=== PATIENT | female | born 1935 | race Caucasian/White ===

== ENCOUNTER → 2017-02-26 | Outpatient (CLI) | payer MEDICARE, BC ==
[~2017-02-26] MED LIST: ACTOS30 MG PO; ARICEPT ODT5 MG PO; ASPIR-LOW81 MG PO; ASPIRIN E.C. 8181 MG PO; CALCIUM + D 5001 TAB PO; CARAFATE 1GM1 G PO; CENTRUM SILVER1 TA1 PO; COZAAR50 MG PO; DIOVAN160 MG PO; FERROUS SULFAT325 MG PO; FIBER0.52 GM PO; FISH OIL CONC1000 MG PO; FOSAMAX 70MG TA70 MG PO; IRON50 MG PO; JANUVIA50 MG PO; LEVEMIR SQ; LEVEMIR100 U/ML SQ; LEVOXYL0.05 MG PO; LIPITOR 10MG10 MG PO; METFORMIN ER500 MG PO; METFORMIN500 MG PO; NITROQUICK0.4 MG SL; NITROSTAT0.4 MG SL; PANTOPRAZOLE40 MG PO; PRILOSEC 20MG20 MG PO; PROTONIX PO; RESTASIS0.05% OP; SERTRALINE50 MG PO; TOPROL XL25 MG PO; ULTRAM 50MG TAB50 MG PO; ZETIA10 MG PO; ZOLOFT50 MG PO
== END ==
LOC: SUN.DIA 12:28
DX: E11.9 Type 2 diabetes mellitus without complications (principal); Z68.25 Body mass index [BMI] 25.0-25.9, adult; Z71.3 Dietary counseling and surveillance; E78.5 Hyperlipidemia, unspecified; I10 Essential (primary) hypertension; I51.9 Heart disease, unspecified

== ENCOUNTER → 2017-05-16 | Outpatient (CLI) | payer MEDICARE, BC | LOC: MC.RAD 13:20 | DX: Z12.31 Encounter for screening mammogram for malignant neoplasm of breast (principal) ==

== ENCOUNTER → 2018-02-25 | Outpatient (CLI) | payer MEDICARE, BC | LOC: SUN.DIA 12:55 | DX: E11.9 Type 2 diabetes mellitus without complications (principal); Z79.4 Long term (current) use of insulin; I11.9 Hypertensive heart disease without heart failure; E78.5 Hyperlipidemia, unspecified; Z68.27 Body mass index [BMI] 27.0-27.9, adult; Z71.3 Dietary counseling and surveillance; Z87.891 Personal history of nicotine dependence | CPT/HCPCS: G0108 ==

== ENCOUNTER → 2018-05-22 | Outpatient (CLI) | payer MEDICARE, BC | LOC: MC.RAD 13:29 | DX: Z12.31 Encounter for screening mammogram for malignant neoplasm of breast (principal) ==

== ENCOUNTER → 2018-09-01 | Outpatient (CLI) | payer MEDICARE, BC | LOC: SUN.DIA 12:55 | DX: E11.9 Type 2 diabetes mellitus without complications (principal); Z79.4 Long term (current) use of insulin; E78.5 Hyperlipidemia, unspecified; I10 Essential (primary) hypertension | CPT/HCPCS: G0108 ==

== ENCOUNTER → 2018-10-08 | Outpatient (CLI) | payer MEDICARE, BC | LOC: MHCPAIN 08:09 | DX: G89.29 Other chronic pain (principal); M47.817 Spondylosis without myelopathy or radiculopathy, lumbosacral region; M54.16 Radiculopathy, lumbar region; M53.3 Sacrococcygeal disorders, not elsewhere classified; M48.061 Spinal stenosis, lumbar region without neurogenic claudication | CPT/HCPCS: G0463 ==

== ENCOUNTER → 2018-10-23 | Outpatient (CLI) | payer MEDICARE, BC | LOC: MHCPAIN 10:38 | DX: M47.817 Spondylosis without myelopathy or radiculopathy, lumbosacral region (principal); M54.16 Radiculopathy, lumbar region | CPT/HCPCS: J1040; Q9967 ==

== ENCOUNTER → 2018-11-26 | Outpatient (CLI) | payer MEDICARE, BC | LOC: MHCPAIN 12:58 | DX: G89.29 Other chronic pain (principal); M47.817 Spondylosis without myelopathy or radiculopathy, lumbosacral region; M54.16 Radiculopathy, lumbar region; M53.3 Sacrococcygeal disorders, not elsewhere classified; M48.061 Spinal stenosis, lumbar region without neurogenic claudication | CPT/HCPCS: G0463 ==

== ENCOUNTER → 2019-02-16 | Outpatient (CLI) | payer MEDICARE, BC | LOC: MHCPAIN 10:49 | DX: G89.29 Other chronic pain (principal); M47.817 Spondylosis without myelopathy or radiculopathy, lumbosacral region; M54.16 Radiculopathy, lumbar region; M53.3 Sacrococcygeal disorders, not elsewhere classified; M48.061 Spinal stenosis, lumbar region without neurogenic claudication | CPT/HCPCS: G0463 ==

== ENCOUNTER → 2019-02-19 | Outpatient (CLI) | payer MEDICARE, BC | LOC: MHCPAIN 13:01 | DX: M47.817 Spondylosis without myelopathy or radiculopathy, lumbosacral region (principal); M54.16 Radiculopathy, lumbar region | CPT/HCPCS: J1100; Q9967 ==

== ENCOUNTER → 2019-03-02 | Outpatient (CLI) | payer MEDICARE, BC | LOC: SUN.DIA 12:41 | DX: E11.9 Type 2 diabetes mellitus without complications (principal); E78.5 Hyperlipidemia, unspecified; I10 Essential (primary) hypertension; Z79.4 Long term (current) use of insulin | CPT/HCPCS: G0108 ==

== ENCOUNTER 2019-05-06 07:22 | Outpatient (CLI) | payer MEDICARE, BC ==
[2005-12-20 00:53] VITALS: BP 127/66
[~2019-05-06] VITALS: Ht 147.3 cm; Wt 63.6 kg
[2019-05-06 07:50] VITALS: BP 128/67; PULSE 44; TEMP 98
[2019-05-06] MEDS ORDERED: LUTEIN6 MG PO (08:17)
[2019-05-06] MEDS ORDERED: AMITRIPTYLINE H10 M1 PO (08:17)
[2019-05-06] MEDS ORDERED: PROBIOTIC FORMU1 CAP PO (08:17)
[2019-05-06] MEDS ORDERED: LASIX 20MG TABL20 MG PO (08:18)
[2019-05-06] MEDS ORDERED: ZANTAC 300300 MG PO (08:18)
[2019-05-06] MEDS ORDERED: CLEOCIN HCL300 MG PO (09:25)
--- NOTE | 2019-05-06 09:45 | NUR ---
Discharge instructions given. Transferred to private car by vincent
[2019-05-06 09:55] VITALS: BP 124/76; PULSE 72; TEMP 98
== END 2019-05-06 09:59 | disposition home or self-care (01) ==
LOC: COL.CAR 07:22
DX: I25.10 Atherosclerotic heart disease of native coronary artery without angina pectoris (principal); I25.2 Old myocardial infarction; I25.5 Ischemic cardiomyopathy; Z95.5 Presence of coronary angioplasty implant and graft; I44.7 Left bundle-branch block, unspecified; I10 Essential (primary) hypertension; E78.5 Hyperlipidemia, unspecified; R55 Syncope and collapse; R09.89 Other specified symptoms and signs involving the circulatory and respiratory systems; E11.9 Type 2 diabetes mellitus without complications; F03.90 Unspecified dementia, unspecified severity, without behavioral disturbance, psychotic disturbance, mood disturbance, and anxiety; J30.2 Other seasonal allergic rhinitis; K21.9 Gastro-esophageal reflux disease without esophagitis; Z88.0 Allergy status to penicillin; Z79.82 Long term (current) use of aspirin; Z87.891 Personal history of nicotine dependence; Z82.49 Family history of ischemic heart disease and other diseases of the circulatory system; Z79.4 Long term (current) use of insulin

== ENCOUNTER 2019-06-29 06:50 | Day surgery (SDC) | payer MEDICARE, BC ==
[2005-12-20 00:53] VITALS: BP 127/66
[~2019-06-29] VITALS: Ht 147.3 cm; Wt 64.2 kg
[2019-06-29] VITALS (14 sets, daily range): BP systolic 124–183; BP diastolic 40–85; PULSE 61–75; TEMP 97.8
[~2019-06-29 06:50] MED LIST changes: +AMITRIPTYLINE H10 M1 PO; +CLEOCIN HCL300 MG PO; +LASIX 20MG TABL20 MG PO; +LUTEIN6 MG PO; +PROBIOTIC FORMU1 CAP PO; +ZANTAC 300300 MG PO
[2019-06-29 07:45] LABS: HEMOGLOBIN 11.6 g/dl (12.5-16.0); MEAN CELL VOLUME 91 fl (80.0-100.0); MEAN CORPUSCULAR HEMOGLOBIN 30 pg (27.0-31.0); MEAN CORPUSCULAR HGB CONC 33 g/dl (33.0-37.0); MEAN PLATELET VOLUME 9.1 fl (7.4-10.4); PLATELET COUNT 193 K/mm3 (130-400); RED BLOOD COUNT 3.88 M/mm3 (4.10-5.30); REDCELL DISTRIBUTION WIDTH-CV 14.9 % (11.5-14.5)
[2019-06-29 07:48] LABS: HEMATOCRIT 35.1 % (37.0-47.0)
[2019-06-29 07:54] LABS: INR 1.1 (0.8-3.0); PROTHROMBIN TIME 12.3 SECONDS (9.7-12.8)
[2019-06-29 07:55] LABS: CALCIUM 9.8 mg/dL (8.4-10.2); CREATININE, serum 1.45 (0.52-1.25); POTASSIUM 4.4 mmol/L (3.4-5.0)
[2019-06-29] MEDS ORDERED: ULTRAM 50MG TAB50 MG PO (08:08)
[2019-06-29] MEDS ORDERED: FOSAMAX 70MG TA70 MG PO (08:19)
[2019-06-29] MEDS ORDERED: SYNTHROID0.05 MG/TA PO (08:20)
[2019-06-29] MEDS ORDERED: ZYRTEC 10MG10 MG PO (08:21)
[2019-06-29] MEDS ORDERED: RESTASIS MULTI5.5 ML OP (08:22)
[2019-06-29] MEDS ORDERED: JANUVIA50 MG PO (08:22)
[2019-06-29] MEDS ORDERED: TOPROL XL 25MG25 MG PO ×2 (08:23→10:09)
[2019-06-29] MEDS ORDERED: GLUMETZA500 MG PO (08:24)
[2019-06-29] MEDS ORDERED: ZOLOFT 50MG50 MG PO (08:28)
[2019-06-29] MEDS ORDERED: LASIX 20MG TABL20 MG PO ×2 (08:29→10:11)
[2019-06-29] MEDS ORDERED: CENTRUM SILVER1 CTB PO (08:30)
[2019-06-29] MEDS ORDERED: CALCIUM CARBON650 M2 (08:31)
[2019-06-29] MEDS ORDERED: PROFE180 MG PO (08:31)
[2019-06-29] MEDS ORDERED: PROBIOTIC FORMU1 CAP PO (08:32)
[2019-06-29] MEDS ORDERED: LUTEIN20 M1 PO (08:32)
[2019-06-29] MEDS ORDERED: EPA FISH OIL1 SGL PO (08:33)
[2019-06-29] MEDS ORDERED: ASPIRIN 81M81 MG/TA2 PO (08:33)
[2019-06-29] MEDS ORDERED: LIPITOR 10MG10 MG PO (08:34)
[2019-06-29] MEDS ORDERED: COZAAR 50MG50 MG/TAB PO ×2 (08:35→10:09)
[2019-06-29] MEDS ORDERED: ACTOS30 MG PO (08:35)
[2019-06-29] MEDS ORDERED: ARICEPT10 MG PO (08:36)
[2019-06-29] MEDS ORDERED: AMITRIPTYLINE H10 M1 PO (08:37)
[2019-06-29] MEDS ORDERED: LEVEMIR100 U/ML SQ (08:39)
[2019-06-29] MEDS ORDERED: ZANTAC 300300 MG PO (08:40)
[2019-06-29] MEDS ORDERED: TEMOVATE OINT30 GM TOP (08:41)
[2019-06-29] MEDS ORDERED: ESTRACE0.1 MG/GM VG (08:41)
[2019-06-29] MEDS ORDERED: NITROSTAT0.4 MG/TAB SL (08:42)
[2019-06-29] MEDS ORDERED: FIBER0.52 GM PO (08:43)
[2019-06-29] MEDS ORDERED: QUESTRAN4 GM/9 GM PO (08:43)
--- NOTE | 2019-06-29 09:20 | NUR ---
Pt to procedure,report to Nicole Gaspar.
--- NOTE | 2019-06-29 10:15 | NUR ---
Pt transferred to express unit at this time. During case, right radial access initially attempted but without success. Pressure held during case. Edema bruising noted to right wrist following case completion. Radial pulse remains +2 to palpation. Edematous area noted soft, no hematoma currently palpated. Sight examined by MD prior to transfer to express with no new orders currently received. Armboard applied and bruising extent marked. Bedside report/handoff to POLO Ryan and POLO Oneil. Right radial site remains unchanged from when MD assessed it. Right groin site assessed without bruising or bleeding noted, dressing remains dry/intact, and sight soft to palpation. No s/sx of hematoma noted. Right DP pulse +2. VS's WNL. Education provided to pt and family regarding movement restrictions and flat time. All questions answered at this time.
--- NOTE | 2019-06-29 10:27 | NUR ---
Pt back from biological lab technician. report was received from ROSENDO CUELLAR. Plan to continue monitoriung of rt radial puncture site as well as rt femoral site. Rt radial pulse intact at this time. there is some bruising to rt wrist that is demarcated with a skin marker, the bruising has not expanded past this line at this point. cms is intact.
--- NOTE | 2019-06-29 11:11 | NUR ---
Pt has used bedpan with no problem. turned pt to rt side keeping rt leg straight. pt does complain now of numbness to rt wrist. there was a board placed on rt wrist upon her return to express unit to help her keep from moving rt wrist. this board is removed and bandain to puncture loosened slightly. after repositioning rt wrist in neutral position for several minutes, pt continues to complain of rt thumb numbness, although it does seem to be improving slowly. cms intact otherwise.
--- NOTE | 2019-06-29 14:18 | NUR ---
Pt resting comfortably, satting 97% on room air, at bs. Discharge instructions r/t rt femoral access and rt wrist puncture reviewed with pt and pt's . written instructions provided. and patient verbalize understanding of instructions and needed monitoring.
--- NOTE | 2019-06-29 14:45 | NUR ---
Pt was able to sit at edge of bed, stand, ambulate to toilet that is in the room. Pt then ambulated in the pop with stand by assist. Groin remains soft with no hematoma and no drainage. rt wrist bruising present but unchanges, no hematoma to wrist. rt thumb now normal, no numbness reported. Pt now sitting in chair beside , eating lunch, drank water with no problem. cardiac monitoring still in place. plan to reassess groin and wrist after patient eats. Still waiting to find out whether pt with receive life vest prior to her departure. Clarice Adler RN working on this. Pt and aware of poc.
--- NOTE | 2019-06-29 15:16 | NUR ---
Patient will be fitted for lifevest at home.Arrangements made by Dr torres nursePepper.Ok'd by Dr torres to be fitted at home.Discharge instructions reviewed with pt.Pt verbalized understanding.
== END 2019-06-29 15:30 | disposition home or self-care (01) ==
LOC: COL.CAR 06:50
PROVIDERS: Internal Medicine Cardiovascular Disease
DX: I25.5 Ischemic cardiomyopathy (principal); I25.10 Atherosclerotic heart disease of native coronary artery without angina pectoris; I10 Essential (primary) hypertension; I44.7 Left bundle-branch block, unspecified; E78.5 Hyperlipidemia, unspecified; I25.2 Old myocardial infarction; E11.9 Type 2 diabetes mellitus without complications; Z79.4 Long term (current) use of insulin; K21.9 Gastro-esophageal reflux disease without esophagitis; Z95.5 Presence of coronary angioplasty implant and graft; I34.0 Nonrheumatic mitral (valve) insufficiency; Z88.0 Allergy status to penicillin; Z79.82 Long term (current) use of aspirin; Z79.899 Other long term (current) drug therapy; Z87.891 Personal history of nicotine dependence; Z82.49 Family history of ischemic heart disease and other diseases of the circulatory system; Z95.818 Presence of other cardiac implants and grafts
CPT/HCPCS: J1644; J2250; J3010; Q9967

== ENCOUNTER 2019-07-19 10:32 | Emergency (ER) | payer MEDICARE, BC ==
[2005-12-20 00:53] VITALS: BP 127/66
[~2019-07-19] VITALS: Ht 147.3 cm; Wt 64.3 kg
[~2019-07-19 10:32] MED LIST changes: +ARICEPT10 MG PO; +ASPIRIN 81M81 MG/TA2 PO; +CALCIUM CARBON650 M2; +CENTRUM SILVER1 CTB PO; +COZAAR 50MG50 MG/TAB PO; +EPA FISH OIL1 SGL PO; +ESTRACE0.1 MG/GM VG; +GLUMETZA500 MG PO; +LUTEIN20 M1 PO; +NITROSTAT0.4 MG/TAB SL; +PROFE180 MG PO; +QUESTRAN4 GM/9 GM PO; +RESTASIS MULTI5.5 ML OP; +SYNTHROID0.05 MG/TA PO; +TEMOVATE OINT30 GM TOP; +TOPROL XL 25MG25 MG PO; +ZOLOFT 50MG50 MG PO; +ZYRTEC 10MG10 MG PO
[2019-07-19 10:42] VITALS: TEMP 98.4
[2019-07-19 11:18] LABS: BASO % 0.6 % (0.0-2.0); EOS # 0.2 (0.0-0.7); GRAN # 2.9 (1.4-6.5); GRAN % 59.1 % (42.2-75.2); HEMOGLOBIN 11.6 g/dl (12.5-16.0); LYMPH # 1.4 (1.2-3.4); LYMPH % 27.4 % (20.0-51.0); MEAN CELL VOLUME 92 fl (80.0-100.0); MEAN CORPUSCULAR HEMOGLOBIN 30 pg (27.0-31.0); MEAN CORPUSCULAR HGB CONC 32 g/dl (33.0-37.0); MEAN PLATELET VOLUME 9.2 fl (7.4-10.4); MONO # 0.5 (0.1-0.6); MONO % 9.7 % (1.7-9.3); PLATELET COUNT 192 K/mm3 (130-400); RED BLOOD COUNT 3.92 M/mm3 (4.10-5.30); REDCELL DISTRIBUTION WIDTH-CV 15.1 % (11.5-14.5)
[2019-07-19 11:19] LABS: PROTHROMBIN TIME 12.1 SECONDS (9.7-12.8)
[2019-07-19 11:26] LABS: ALANINE AMINOTRANSFERASE 22 U/L (9-52); ALBUMIN 4.2 gm/dL (3.5-5.0); ALKALINE PHOSPHATASE 64 U/L (50-136); ANION GAP 9 mmol/L (7-16); AST,SGOT 27 U/L (15-37); BILIRUBIN,TOTAL 0.3 mg/dL (0.0-1.0); BLOOD UREA NITROGEN 27 mg/dL (7-17); CALCIUM 9.8 mg/dL (8.4-10.2); CARBON DIOXIDE 31 mmol/L (22-30); CHLORIDE 98 mmol/L (98-107); CREATININE, serum 1.29 (0.52-1.25); GLUCOSE 117 mg/dL (74-106); SODIUM 138 mmol/L (137-145); TOTAL PROTEIN 7.4 gm/dL (6.4-8.2)
[2019-07-19 11:39] LABS: TROPONIN-I < 0.012 ng/mL (0.000-0.035)
[2019-07-19 14:50] LABS: COLLECTION METHOD CLEAN CATCH
[2019-07-19 15:03] LABS: PH 8 (5-8); SQUAMOUS EPITHELIAL None Seen /hpf; URINE APPEARANCE Clear; URINE BACTERIA None Seen /hpf; URINE BILIRUBIN Negative (NEGATIVE); URINE BLOOD Negative (NEGATIVE); URINE COLOR Yellow; URINE GLUCOSE Negative (NEGATIVE); URINE KETONE Negative (NEGATIVE); URINE LEUKOCYTE ESTERASE Negative (NEGATIVE); URINE NITRATE Negative (NEGATIVE); URINE PROTEIN(semi-quant) Negative (NEGATIVE); URINE UROBILINOGEN Negative (NEGATIVE)
[2019-07-19 15:17] VITALS: BP 133/75; PULSE 76
== END 2019-07-19 15:30 | disposition home or self-care (01) ==
LOC: COL.ER 10:32
PROVIDERS: Emergency Medicine
DX: R55 Syncope and collapse (principal); Z95.9 Presence of cardiac and vascular implant and graft, unspecified; Z79.82 Long term (current) use of aspirin; Z79.4 Long term (current) use of insulin
CPT/HCPCS: J7040

== ENCOUNTER → 2019-08-04 | Outpatient (CLI) | payer MEDICARE, BC | LOC: MC.RAD 12:56 | DX: Z12.31 Encounter for screening mammogram for malignant neoplasm of breast (principal) ==

== ENCOUNTER 2021-12-16 13:51 | Emergency (ER) | payer MEDICARE, BC ==
[~2021-12-16] VITALS: Ht 147.3 cm; Wt 65.9 kg
[~2021-12-16 13:51] MED LIST changes: +CALCIUM CITRAT200 M2; +COZAAR100 MG PO; +MASON NATURAL2000 IU PO; +NORVASC 5MG5 MG/TAB PO; +PAMELOR 10MG10 MG PO; +REQUIP2 MG PO; +VTAMINC250TA
[2021-12-16 15:25] LABS: BASO % 0.5 % (0.0-2.0); EOS # 0.1 K/mm3 (0.0-0.7); EOS % 1.9 % (0.0-4.0); GRAN # 3.9 K/mm3 (1.4-6.5); GRAN % 61.4 % (42.2-75.2); HEMATOCRIT 41.1 % (37.0-47.0); HEMOGLOBIN 13.4 g/dl (12.5-16.0); LYMPH # 1.9 K/mm3 (1.2-3.4); MEAN CELL VOLUME 90 fl (80.0-100.0); MEAN CORPUSCULAR HEMOGLOBIN 29 pg (27-31); MEAN CORPUSCULAR HGB CONC 33 g/dl (33.0-37.0); MEAN PLATELET VOLUME 9.2 fl (7.4-10.4); MONO # 0.4 K/mm3 (0.1-0.6); MONO % 6.9 % (1.7-9.3); PLATELET COUNT 234 K/mm3 (130-400); RED BLOOD COUNT 4.59 M/mm3 (4.10-5.30); REDCELL DISTRIBUTION WIDTH-CV 14.9 % (11.5-14.5)
[2021-12-16 15:34] LABS: COLLECTION METHOD CLEAN CATCH
--- NOTE | 2021-12-16 15:36 | NUR ---
SW called to ED to assist with providing resources to patient's spouse about placement due to patient's agression. SW went down to ED to speak to patient and spouse. When greeting patient patient yelled at SW asking what what she doing here and what did she want and repeated that she was feeling alright. Patient then motioned for SW to talk to spouse. Conversation held with spouse about what currently was going on. Spouse stated that patient would not listen to him and he was unsure of how to assist her since she hasn't been listening. SW asked spouse if he had children in the area and spouse stated that he did and that he and patient were having a family meeting tomorrow to discuss future care of patient. Spouse stated that he had a care meeting with an agency this week to discuss information. SW provided local resources such as home health agencies, parts counterman care agencies and local community resources. SW informed spouse that case management could assist in providing local agencies with information to review if patient could be placed after documentation is released from [facility]. SW awaiting documentation from physician to send to local agencies such as [facility], [facility] and [facility] and spouses request. SW will continue to assist as needed.
[2021-12-16 15:40] LABS: MUCOUS Present (NOT PRESENT); PH 5 (5-8); SQUAMOUS EPITHELIAL 0-2 /hpf (0-10); URINE APPEARANCE Hazy (CLEAR/HAZY); URINE BACTERIA Many /hpf (NONE SEEN); URINE BILIRUBIN Negative (NEGATIVE); URINE BLOOD 1+ (NEGATIVE); URINE COLOR Yellow (YELLOW); URINE GLUCOSE Negative (NEGATIVE); URINE KETONE Negative (NEGATIVE); URINE LEUKOCYTE ESTERASE 2+ (NEGATIVE); URINE NITRATE Negative (NEGATIVE); URINE PROTEIN(semi-quant) Negative (NEGATIVE); URINE UROBILINOGEN Negative (NEGATIVE)
[2021-12-16 15:41] LABS: ALBUMIN 4.6 gm/dL (3.4-4.8); BILIRUBIN,TOTAL 0.4 mg/dL (0.2-1.2); CALCIUM 10.3 mg/dL (8.4-10.2); CREATININE, serum 1.25 mg/dL (0.57-1.11); POTASSIUM 4.4 mmol/L (3.5-4.5); TOTAL PROTEIN 8.4 gm/dL (6.2-8.1)
[2021-12-16 15:48] LABS: TROPONIN-I 0.021 ng/mL (0.00-0.033)
[2021-12-16 15:55] LABS: TRICYCLIC ANTIDEPRESS URINE POSITIVE
[2021-12-17 17:52] VITALS: BP 158/90; PULSE 99; TEMP 97
== END 2021-12-17 17:52 ==
LOC: COL.ER 13:51
PROVIDERS: Student in an Organized Health Care Education/Training Program
DX: F03.90 Unspecified dementia, unspecified severity, without behavioral disturbance, psychotic disturbance, mood disturbance, and anxiety (principal); Z20.822 Contact with and (suspected) exposure to COVID-19

== ENCOUNTER 2022-02-05 17:28 | Emergency (ER) | payer MEDICARE, BC ==
[~2022-02-05] VITALS: Ht 147.3 cm; Wt 63.6 kg
[2022-02-05 19:00] LABS: BASO % 0.4 % (0.0-2.0); EOS # 0.2 K/mm3 (0.0-0.7); GRAN # 5.2 K/mm3 (1.4-6.5); GRAN % 65.7 % (42.2-75.2); HEMATOCRIT 40.2 % (37.0-47.0); HEMOGLOBIN 13.1 g/dl (12.5-16.0); LYMPH # 1.6 K/mm3 (1.2-3.4); LYMPH % 20.2 % (20.0-51.0); MEAN CELL VOLUME 90 fl (80.0-100.0); MEAN CORPUSCULAR HEMOGLOBIN 29 pg (27-31); MEAN CORPUSCULAR HGB CONC 33 g/dl (33.0-37.0); MEAN PLATELET VOLUME 9.2 fl (7.4-10.4); MONO # 0.8 K/mm3 (0.1-0.6); MONO % 10.3 % (1.7-9.3); PLATELET COUNT 251 K/mm3 (130-400); RED BLOOD COUNT 4.45 M/mm3 (4.10-5.30); REDCELL DISTRIBUTION WIDTH-CV 15.8 % (11.5-14.5)
[2022-02-05 19:16] LABS: BILIRUBIN,TOTAL 0.4 mg/dL (0.2-1.2); C-REACTIVE PROTEIN 0.1 mg/dL (0.00-0.50); CALCIUM 10.1 mg/dL (8.4-10.2); CREATININE, serum 1.15 mg/dL (0.57-1.11); POTASSIUM 4.1 mmol/L (3.5-4.5); TOTAL PROTEIN 7.5 gm/dL (6.2-8.1)
[2022-02-05 20:07] LABS: COLLECTION METHOD CATHETER
[2022-02-05 20:22] LABS: MUCOUS Present (NOT PRESENT); PH 5 (5-8); SQUAMOUS EPITHELIAL None Seen /hpf (0-10); URINE APPEARANCE Clear (CLEAR/HAZY); URINE BACTERIA None Seen /hpf (NONE SEEN); URINE BILIRUBIN Negative (NEGATIVE); URINE BLOOD 1+ (NEGATIVE); URINE COLOR Yellow (YELLOW); URINE GLUCOSE Negative (NEGATIVE); URINE KETONE 1+ (NEGATIVE); URINE LEUKOCYTE ESTERASE Negative (NEGATIVE); URINE NITRATE Negative (NEGATIVE); URINE PROTEIN(semi-quant) Negative (NEGATIVE); URINE UROBILINOGEN Negative (NEGATIVE)
[2022-02-05 22:48] VITALS: BP 169/72; PULSE 89; TEMP 98
--- NOTE | 2022-02-07 08:52 | NUR ---
mold worker contacted patient's spouse regarding skilled home health. Spouse states patient has had increased falls. Worker provided Medicare.gov information on home health agencies and spouse chose [facility] Worker gave [facility] health a referral and faxed clinical information. Worker contacted Nina social services aide at Dr Amor's office and secured that they will send home health orders to [facility].
== END 2022-02-05 22:48 | disposition home or self-care (01) ==
LOC: COL.ER 17:28
PROVIDERS: Nurse Practitioner
DX: R53.1 Weakness (principal); Z87.891 Personal history of nicotine dependence

== ENCOUNTER 2022-02-13 16:56 | Observation (INO) | payer MEDICARE, BC ==
[~2022-02-13] VITALS: Ht 147.3 cm; Wt 58.3 kg
[2022-02-13 17:46] LABS: BASO % 0.5 % (0.0-2.0); EOS # 0.2 K/mm3 (0.0-0.7); EOS % 4.3 % (0.0-4.0); GRAN # 3.4 K/mm3 (1.4-6.5); GRAN % 61.5 % (42.2-75.2); HEMATOCRIT 39.8 % (37.0-47.0); HEMOGLOBIN 12.9 g/dl (12.5-16.0); LYMPH # 1.1 K/mm3 (1.2-3.4); LYMPH % 19.4 % (20.0-51.0); MEAN CELL VOLUME 91 fl (80.0-100.0); MEAN CORPUSCULAR HEMOGLOBIN 30 pg (27-31); MEAN CORPUSCULAR HGB CONC 32 g/dl (33.0-37.0); MEAN PLATELET VOLUME 9.3 fl (7.4-10.4); MONO # 0.8 K/mm3 (0.1-0.6); MONO % 13.8 % (1.7-9.3); PLATELET COUNT 210 K/mm3 (130-400); RED BLOOD COUNT 4.37 M/mm3 (4.10-5.30); REDCELL DISTRIBUTION WIDTH-CV 15.7 % (11.5-14.5)
[2022-02-13 18:05] LABS: COLLECTION METHOD CATHETER
[2022-02-13 18:13] LABS: ALBUMIN 3.7 gm/dL (3.4-4.8); BILIRUBIN,TOTAL 0.5 mg/dL (0.2-1.2); CALCIUM 9.7 mg/dL (8.4-10.2); CREATININE, serum 1.14 mg/dL (0.57-1.11); POTASSIUM 4.1 mmol/L (3.5-4.5); TOTAL PROTEIN 7.3 gm/dL (6.2-8.1)
[2022-02-13 18:17] LABS: PH 5 (5-8); SQUAMOUS EPITHELIAL 0-2 /hpf (0-10); URINE APPEARANCE Clear (CLEAR/HAZY); URINE BACTERIA Rare /hpf (NONE SEEN); URINE BILIRUBIN Negative (NEGATIVE); URINE BLOOD 2+ (NEGATIVE); URINE COLOR Yellow (YELLOW); URINE GLUCOSE Negative (NEGATIVE); URINE KETONE Trace (NEGATIVE); URINE LEUKOCYTE ESTERASE Negative (NEGATIVE); URINE NITRATE Negative (NEGATIVE); URINE PROTEIN(semi-quant) Negative (NEGATIVE); URINE RBC 0-2 /hpf (0-2); URINE UROBILINOGEN Negative (NEGATIVE)
[2022-02-13 18:25] LABS: TROPONIN-I 0.057 ng/mL (0.00-0.033)
[2022-02-13 22:18] VITALS: BP 170/69; PULSE 102; TEMP 98.1
[2022-02-13] MEDS ORDERED: ZYPREXA10 MG PO (23:41)
[2022-02-13] MEDS ORDERED: LASIX 40MG TABL40 MG PO (23:42)
[2022-02-14 04:16] VITALS: BP 137/62; PULSE 102; TEMP 97.6
--- NOTE | 2022-02-14 05:39 | NUR ---
Patient arrived to the floor at approximately 2200. Patient is here due to weakness and progressing dementia. Patient takes PO medications without difficulty. Spouse at the bedside and calms patient, spouse stayed the night. Patient is incontinent and comes from home; spouse is primary caregiver. Patient on TELE but frequently takes leads off. Staff has to orient patient frequently. Patient has had no complaints of pain. Will continue to monitor. Call light within reach.
--- NOTE | 2022-02-14 06:09 | NUR ---
Patient was bladder scanned by PCT, 440ml was scanned in patients bladder. This nurse encouraged patient to urinate on her own due to patient being incontinent at home. Patient is resistant. Will follow up.
[2022-02-14 06:36] LABS: BASO % 0.5 % (0.0-2.0); EOS # 0.3 K/mm3 (0.0-0.7); EOS % 4.4 % (0.0-4.0); GRAN # 3.2 K/mm3 (1.4-6.5); GRAN % 56.1 % (42.2-75.2); HEMOGLOBIN 11.2 g/dl (12.5-16.0); LYMPH # 1.5 K/mm3 (1.2-3.4); LYMPH % 25.8 % (20.0-51.0); MEAN CELL VOLUME 94 fl (80.0-100.0); MEAN CORPUSCULAR HEMOGLOBIN 30 pg (27-31); MEAN CORPUSCULAR HGB CONC 32 g/dl (33.0-37.0); MEAN PLATELET VOLUME 9.7 fl (7.4-10.4); MONO # 0.7 K/mm3 (0.1-0.6); MONO % 12.7 % (1.7-9.3); PLATELET COUNT 190 K/mm3 (130-400); RED BLOOD COUNT 3.74 M/mm3 (4.10-5.30); REDCELL DISTRIBUTION WIDTH-CV 15.9 % (11.5-14.5)
[2022-02-14 06:37] LABS: HEMATOCRIT 35.3 % (37.0-47.0)
[2022-02-14 07:00] LABS: CALCIUM 9.2 mg/dL (8.4-10.2); CREATININE, serum 0.84 mg/dL (0.57-1.11); MAGNESIUM 1.8 mg/dL (1.6-2.6); POTASSIUM 3.9 mmol/L (3.5-4.5)
--- NOTE | 2022-02-14 07:30 | NUR ---
HospitalistVinicio was called due to results of bladder scan. Verbal order for a el catheter was given. This nurse inserted 16fr le catheter without difficulty, patient tolerated procedure well. Initial output was 300ml. Urine is pale yellow and no evidence of sediment is present.
[2022-02-14 07:57] LABS: TROPONIN-I 0.052 ng/mL (0.00-0.033)
[2022-02-14 08:00] VITALS: BP 147/49; PULSE 103; TEMP 98.8
[2022-02-14 08:01] LABS: TSH w REFLEX 2.124 uIU/mL (0.350-4.940)
[2022-02-14] MEDS ORDERED: K-DUR20 MEQ PO (08:59)
--- NOTE | 2022-02-14 09:00 | NUR ---
Pt is confused and consoles to her multiple times during conversation. She did eat a small amount of breakfast, but states that she does not eat much at home. Pt only took a few of her medications, informed that I would return with remaining medications, mostly vitamins. Pt does have some complaints of back pain which is chronic. Educated on orientation to room, ordering meals as well as notifying nursing when he leaves so that she can be monitored more closely.
--- NOTE | 2022-02-14 11:30 | NUR ---
DENNIS Martinez aware of the troponin
[2022-02-14 11:41] VITALS: BP 206/92; PULSE 111; TEMP 98.7
--- NOTE | 2022-02-14 11:42 | NUR ---
First visit from the fashion artist. No needs right now.
--- NOTE | 2022-02-14 11:47 | NUR ---
Notified DENNIS Martinez of BP
--- NOTE | 2022-02-14 11:57 | NUR ---
The patient has dementia. JERE met with the patient, her daughter (Sherry), and another family member. Sherry requested that SW contact the patient's . JERE contacted the patient's , Raúl, to discuss discharge plan. The patient lives in [place] with her . Raúl states that the patient normally uses a walker, but that she lost control of her legs 4-5 days ago and has not been able to walk. They have a wheelchair. Raúl states that the patient has home health services from [facility]. JERE attempted to contact and update Kimi at [facility]. SW left her a voicemail. The patient's PCP is Dr. Zeus Abarca and she receives her medications from [facility]. The patient's DPOA-HC is in EMR and it designates her . The alternate is her daughter, Barbi. With the patient's weakness, the patient's is interested in SNF upon discharge. He prefers 1) [facility] 2) [facility]. SW contacted and faxed a referral to both facilities. Awaiting screens. The patient's confirms that the patient got out of a geripsych in [place] about a month ago. *Discharge plan: SNF*
[2022-02-14] MEDS ORDERED: PROTONIX20 MG PO ×2 (12:28→12:30)
[2022-02-14] MEDS ORDERED: DETROL LA4 PO (12:29)
--- NOTE | 2022-02-14 12:30 | NUR ---
Rechecked BP prior to giving PRN, BP was WNL at this time. Pt had worked with therapy prior to previous BP. Pt is resting comfortably in bed at this time. Med rec has been worked on for quite a while today. Pt has 2 different lists as well as a list from the pharmacy, each are different. Updated DENNIS Martinez of the med rec updates.
[2022-02-14] MEDS ORDERED: QUESTRAN4 GM/9 GM PO (12:31)
[2022-02-14] MEDS ORDERED: SINGULAIR 110 MG/TAB PO (12:32)
[2022-02-14 12:47] VITALS: BP 125/51
[2022-02-14] MEDS ORDERED: JANUVIA 100MG100 MG PO (12:55)
[2022-02-14] MEDS ORDERED: B-121000 MCG PO (12:58)
--- NOTE | 2022-02-14 15:21 | NUR ---
PT continues to do okay. Therapy has been in to work with pt. No needs verbalized, at bedside. Report given to POLO Solis
[2022-02-14 15:30] VITALS: BP 112/51; PULSE 105; TEMP 98.3
--- NOTE | 2022-02-14 16:25 | NUR ---
general utility worker, Brianne Montenegro, presented NATARAJAN form to spouse.
[2022-02-14 20:22] VITALS: BP 134/50; PULSE 101; TEMP 98.1
[2022-02-15] VITALS (7 sets, daily range): BP systolic 95–157; BP diastolic 36–72; PULSE 71–110; TEMP 97.4–98.7
[2022-02-15 06:31] LABS: BASO % 0.6 % (0.0-2.0); EOS # 0.2 K/mm3 (0.0-0.7); EOS % 3.4 % (0.0-4.0); GRAN # 4.4 K/mm3 (1.4-6.5); HEMOGLOBIN 11.9 g/dl (12.5-16.0); LYMPH # 1.4 K/mm3 (1.2-3.4); LYMPH % 20.3 % (20.0-51.0); MEAN CELL VOLUME 91 fl (80.0-100.0); MEAN CORPUSCULAR HEMOGLOBIN 30 pg (27-31); MEAN CORPUSCULAR HGB CONC 33 g/dl (33.0-37.0); MEAN PLATELET VOLUME 9.8 fl (7.4-10.4); MONO # 0.9 K/mm3 (0.1-0.6); MONO % 13.1 % (1.7-9.3); PLATELET COUNT 183 K/mm3 (130-400); RED BLOOD COUNT 3.97 M/mm3 (4.10-5.30); REDCELL DISTRIBUTION WIDTH-CV 15.6 % (11.5-14.5)
[2022-02-15 06:36] LABS: HEMATOCRIT 36.1 % (37.0-47.0)
[2022-02-15 06:43] LABS: CALCIUM 9.1 mg/dL (8.4-10.2); CREATININE, serum 1.04 mg/dL (0.57-1.11); POTASSIUM 3.6 mmol/L (3.5-4.5)
--- NOTE | 2022-02-15 08:29 | NUR ---
*(LATE ENTRY)* JERE contacted patients Raúl to inform him of the patients status being changed from INPT to OBS status. This SW and SW student met Raúl in the patients room. Raúl is provided education and presented NATARAJAN form. All questions answered. Signed original placed in the patients chart and copy provided back to Raúl.
--- NOTE | 2022-02-15 10:27 | NUR ---
Follow-up visit; Patient and her husb thanked Direct Marketing Analyst for looking in on her and offering God's blessings.
--- NOTE | 2022-02-15 10:59 | NUR ---
The patient was downgraded to observation yesterday. Going to a SNF will now be private pay. JERE met with the patient's , Raúl, and updated him about SNF being private pay. Raúl verbalized understanding and states that they would be able to afford to private pay at a SNF and he still wants to pursue with SNF. He is open to SW sending a referral to [facility]. Raúl states that they own and make too much to be able to apply or qualify for Medicaid. JERE contacted and faxed a referral to Marivel at [facility]. JERE updated [facility] and [facility]'s of the patient's status change. Justine, at [facility], reports that they have declined the patient, due to not having special care availability.
--- NOTE | 2022-02-15 14:35 | NUR ---
Marivel, at [facility], states that they should be able to accept the patient. She states that the [id number] cost would be about $8,000 and they would require payment up front. Marivel states she will get in contact with the patient's , Raúl. Yonathan, at [facility], reports that he has not had a chance to get an answer from his team yet. SW updated the patient's and daughter. The patient's and daughter are considering just transitioning the patient into long-term care instead of SNF. They are still thinking about this and need to come up with the funds for the facility. The patient's confirms he talked to [facility] and would be okay with her going there.
--- NOTE | 2022-02-15 14:59 | NUR ---
PT REPOSITIONED IN BED WITH 2 ASSIST TO LAY ON HER RIGHT SIDE. PT IS COOPERATIVE @ THIS TIME BUT WAS NOT EARLIER THIS MORNING. MADRID CATHETER DRAINING DEPENDENTLY, URINE IS LIGHT YELLOW ET CLEAR BUT OUTPUT IS MINIMAL. PT ENCOURAGED TO DRINK SOME FLUIDS BUT REMINDED OF FLUID RESTRICTION. SPOUSE IS @ BEDSIDE ET HAS ASSISTED WITH PT CARES THROUGHOUT DAY. RESPIRATIONS REMAIN UNLABORED ON ROOM AIR. BED ALARM IS ON. CALL LIGHT WITHIN REACH.
--- NOTE | 2022-02-15 19:30 | NUR ---
RECEIVED CHANGE OF SHIFT REPORT FROM DAY SHIFT RN.
[2022-02-16 03:43] VITALS: BP 120/74; PULSE 108; TEMP 98.9
--- NOTE | 2022-02-16 07:25 | NUR ---
Change of shift report given to day shift RNKimi.
[2022-02-16 07:35] VITALS: BP 125/46; TEMP 99.1
--- NOTE | 2022-02-16 10:19 | NUR ---
JERE met with the patient and her , Raúl, to follow up about finances. Raúl states that they do still want to pursue with SNF and will private pay, but would prefer [facility] over [facility]. He would like to hear from [facility]. JERE notified Yonathan at [facility]. Yonathan states that he would like to come up to the hospital this morning to meet with the patient and her . He plans to be here soon. JERE updated the patient's .
[2022-02-16 11:51] VITALS: BP 138/56; PULSE 117; TEMP 98.8
--- NOTE | 2022-02-16 12:02 | NUR ---
NUMEROUS ATTEMPTS WERE MADE TO ADMINSTER PT HER MORNING MEDICATIONS. PT WAS EITHER ASLEEP IN BED OR REFUSED. PT'S DID NOT WANT HER TO BE WAKENED WHILE ASLEEP. PT IS ONLY ORIENTED TO SELF ET SPOUSE THAT IS @ BEDSIDE. PT IS SOMETIMES COOPERATIVE WITH CARES BUT OFTEN CANNOT COMPREHEND SITUATION. PT HAS BEEN REPOSITIONED IN BED WITH 2 ASSIST. PT DOES APPEAR TO HAVE A STAGE 1 PRESSURE ULCER ON HER COCCYX. MADRID CATHETER IS REMOVED WITH BALLOON INTACT. DOMINIC CARE COMPLETED. BED ALARM IS ON. CALL LIGHT WITHIN REACH. FAMILY REMAINS @ BEDSIDE.
--- NOTE | 2022-02-16 14:27 | NUR ---
Yonathan, at [facility], arrived to the hospital and met with the patient, her , daughter, and son-in-law. After meeting with the patient, [facility] is able to accept the patient. JERE updated the patient's , Raúl. Raúl is in agreement with the patient going to [facility] today and private paying at the facility. JERE updated Charmaine. The patient is to discharge today, 02/16, to [facility] for a private pay skilled stay. Transportation was scheduled at 1430, via [facility]. No additional needs at this time.
--- NOTE | 2022-02-16 15:15 | NUR ---
PT DISCHARGED TO [facility]IA [facility] @ THIS TIME. PT'S FAMILY IS ACCOMPANYING. PT WAS TRANSFERRED INTO A WITH 2 ASSIST ET A BRAYAN LIFT. PT REMAINS CONFUSED @ BASELINE BUT IS PLEASANT ET COOPERATIVE @ THIS TIME. IV HAS BEEN DCED. PT HAS BEEN DRESSED IN HER OWN CLOTHES FROM HOME. PT HAS NOT YET URINATED SINCE MADRID CATHETER HAS BEEN OUT BUT PT DOES NOT DRINK MANY FLUIDS EVEN WHEN ENCOURAGED.
--- NOTE | 2022-02-16 16:42 | NUR ---
ATTEMPT MADE TO CONTACT [facility] EM[facility] DEPARTMENT TO GIVE REPORT. VOICE MESSAGE LEFT.
== END 2022-02-16 15:15 ==
LOC: COL.ER 16:56 → SURG 19:09
PROVIDERS: Nurse Practitioner; Physician Assistant; Student in an Organized Health Care Education/Training Program; ADMIT Student in an Organized Health Care Education/Training Program
DX: R53.81 Other malaise (principal); R53.1 Weakness; R77.8 Other specified abnormalities of plasma proteins; R60.0 Localized edema; I11.0 Hypertensive heart disease with heart failure; I50.20 Unspecified systolic (congestive) heart failure; E78.5 Hyperlipidemia, unspecified; E11.9 Type 2 diabetes mellitus without complications; E03.9 Hypothyroidism, unspecified; M81.0 Age-related osteoporosis without current pathological fracture; K21.9 Gastro-esophageal reflux disease without esophagitis; G20 Parkinson's disease; F03.90 Unspecified dementia, unspecified severity, without behavioral disturbance, psychotic disturbance, mood disturbance, and anxiety; F32.A Depression, unspecified; Z20.822 Contact with and (suspected) exposure to COVID-19; Z79.899 Other long term (current) drug therapy; Z79.890 Hormone replacement therapy; Z79.84 Long term (current) use of oral hypoglycemic drugs
CPT/HCPCS: 99223-AI; 99231-AI; 99233-AI; 99239; G0378; J1815